=== PATIENT | male | born 1995 | race Caucasian/White ===

== ENCOUNTER 2018-04-08 05:32 | Day surgery (SDC) | payer OTHER ==
[2018-03-31 14:46] VITALS: BMI 23.5
[~2018-04-08 05:32] MED LIST: DEXAMETHASONE SOD PHOSPHATE 10 MG/ML 1 ML VIAL IV ONE; HEPARIN SODIUM,PORCINE 5,000 UNIT/ML 1 ML VIAL SQ ONE; HYDROmorphone 0.5 MG/0.5 ML SYRINGE IVP PRN; MIDAZOLAM 2 MG/2 ML VIAL IV PRN; SCOPOLAMINE 1.5MG/72HR PATCH TRANSDERM ONE; ceFAZolin IN SWFI 2 GM/20 ML SYRINGE IVP ONE
[2018-04-08 06:12] VITALS: RESP 16
[2018-04-08] MEDS: LIDOCAINE 1% 20 ML VIAL (10MG/ML) FOR IV START INTRADERMA PRN ×2 (06:29→06:30)
[2018-04-08] MEDS: LACTATED RINGERS 1,000 ML IV SCH ×2 (06:29→06:30)
[2018-04-08] MEDS: ONDANSETRON 4 MG/2 ML VIAL IVP ONE ×2 (06:32→09:14)
--- NOTE | 2018-04-08 07:30 | P.GSHP ---
History of Present Illness H&P Date: 04/08/18 CHIEF COMPLAINT: Inguinal hernia, bilateral HISTORY OF PRESENT ILLNESS: The patient is a 23-year-old male who presents with a history of swelling and pain along the both groins. Now he presents for repair of his inguinal hernia. PAST MEDICAL HISTORY: Please see list. PAST SURGICAL HISTORY: Please see list. MEDICATIONS: Please see list. ALLERGIES: Please see list. SOCIAL HISTORY: No illicit drug use FAMILY HISTORY: No reports of Crohn disease or ulcerative colitis. REVIEW OF ORGAN SYSTEMS: CONSTITUTIONAL: No reports of fevers or chills. No reports of weight loss despite prior attempts. GI: Denies any blood in stools or constipation. PHYSICAL EXAM: VITAL SIGNS: Stable GENERAL: Well-developed pleasant male in no acute distress. HEENT: No scleral icterus. Extraocular movements grossly intact. Moist buccal mucosa. NECK: Supple without lymphadenopathy. CHEST: Unlabored respirations. Equal bilateral excursions. CARDIOVASCULAR: Regular rate and rhythm. Distal 2+ pulses. ABDOMEN: Soft, nondistended. No peritoneal signs. Palpable defect of the bilateral groin. MUSCULOSKELETAL: No clubbing, cyanosis, or edema. ASSESSMENT: 1. Inguinal hernia, bilateral PLAN: 1. Recommend proceeding with a robotic inguinal repair with mesh with bilateral approach. 2. Benefits and risks of surgical intervention was discussed including possibility of open technique. 3. DVT prophylaxis. 4. Antibiotic prophylaxis. Past Medical History History of Any Multi-Drug Resistant Organisms: None Reported Past Surgical History: Hernia Repair Additional Past Surgical History / Comment(s): rt inguinal hernia, reconstructive nose surgery Past Anesthesia/Blood Transfusion Reactions: No Reported Reaction Smoking Status: Current every day smoker - Past Family History Father Family Medical History: Pulmonary Embolus Medications and Allergies Home Medications Medication Instructions Recorded Confirmed Type Cyclobenzaprine [Flexeril] 5 mg PO DAILY PRN 03/31/18 04/08/18 History Ibuprofen 800 mg PO TID PRN 03/31/18 03/31/18 History Allergies Allergy/AdvReac Type Severity Reaction Status Date / Time No Known Allergies Allergy Verified 03/31/18 14:36 Surgical - Exam Vital Signs Temp Pulse Resp BP Pulse Ox 97.4 F L 73 16 125/67 100 04/08/18 06:11 04/08/18 06:11 04/08/18 06:11 04/08/18 06:11 04/08/18 06:11
[2018-04-08] MEDS ORDERED: NEOSTIGMINE 1 MG/ML 10 ML VIAL ONE (07:34)
[2018-04-08] MEDS ORDERED: ROCURONIUM BROMIDE 10 MG/ML 10 ML VIAL IV ONE (07:34)
[2018-04-08] MEDS ORDERED: MIDAZOLAM 2 MG/2 ML VIAL ONE (07:34)
[2018-04-08] MEDS ORDERED: fentaNYL (PF) 50 MCG/ML 2 ML AMP ONE (07:34)
[2018-04-08] MEDS ORDERED: GLYCOPYRROLATE 0.2 MG/ML 2 ML VIAL ONE (07:34)
[2018-04-08] MEDS ORDERED: PROPOFOL 10 MG/ML 20 ML VIAL IV ONE (07:34)
[2018-04-08] MEDS ORDERED: LIDOCAINE 1% INJ 10MG/ML (20 ML MDV) ONE (07:34)
[2018-04-08] MEDS ORDERED: ROPIVACAINE 5 MG/ML 30 ML VIAL ONE (07:34)
[2018-04-08] MEDS ORDERED: ceFAZolin IN SWFI 2 GM/20 ML SYRINGE IVP ONE (07:50)
[2018-04-08] MEDS ORDERED: BUPIVACAIN-EPI 0.25%-1:200,000 30 ML VIAL SQ ONE ×2 (07:58→08:05)
--- NOTE | 2018-04-08 09:01 | P.ONQ ---
Anesthesiology Proc Note - PNB - Peripheral Nerve Block Performed Bilateral Transversus Abdominis Time Out Performed: Yes Procedure Start Time: 07:09 Procedure Stop Time: 07:14 Indication: Acute Post-Operative Pain, Requested by physician Sedation Type: Sedate with meaningful contact maintained Preparation: Sterile Prep Position: Supine Catheter: None Needle Types: On-Q Needle Size: 100mm (4") Needle Gauge: 21 Technique: Ultrasound Injectate: Other (see comment) (0.375% ropivaciane 20cc on each side) Blood Aspirated: No Pain Paresthesia on Injection Noted: No Resistance on Injection: Normal Events: Uneventful and Well Tolerated
[2018-04-08] MEDS: MEPERIDINE 50 MG/ML SYRINGE IVP ONE ×2 (09:10→09:53)
[2018-04-08 09:18] VITALS: TEMP 97.2
--- NOTE | 2018-04-08 09:49 | P.OP ---
Date of Procedure: 04/08/18 Description of Procedure: SURGEON: ELLE PLASENCIA MD PREOPERATIVE DIAGNOSES: 1. History of right inguinal hernia 2. Left inguinal pain 3. Tobacco abuse POSTOPERATIVE DIAGNOSES: 1. History of right inguinal hernia 2. Left inguinal pain 3. Tobacco abuse 4. Symptomatic left inguinal hernia, direct, initial OPERATION: 1. Robotic assisted da [employer] Xi laparoscopic left inguinal hernia repair with ventralight ST mesh, 11.4 cm. ANESTHESIA: General with local anesthetic ESTIMATED BLOOD LOSS: 5 mL. SPECIMENS REMOVED: None. COMPLICATIONS: None. INDICATIONS: The patient is a 23-year-old gentleman who presents with history of right inguinal hernia repair now with left-sided pain. Now presents for definitive surgical intervention. Laparoscopic versus open and robotic approaches were discussed. Benefits and risks including bleeding, infection, injury to the vas deferens as well as sterility and chronic groin pain were reviewed. Placement of mesh was also described. Informed consent was obtained. DESCRIPTION: In the preoperative area, the patient was marked with indelible marker along the left groin. The patient was brought to the operating room and initially laid in supine position. After general induction, the abdomen had been prepped and draped in standard sterile fashion. Ioban draping was also placed. Prior to incision, a timeout protocol was confirmed with surgical team regarding patient's name including procedures to be performed and location along the left groin. Initial positioning for the robotic assisted ports were selected whereby 20 cm superior to the target anatomy, 0 degree 5 mm laparoscopic trocar entry was performed at the left upper quadrant. The abdomen was insufflated to 15 mmHg which he had tolerated well. Diagnostic laparoscopy demonstrated weak left inguinal floor and previous right inguinal hernia repair without recurrence. Next, along the epigastrium, 8 mm robot trocar was placed. An 8-mm robotic trocar was placed under direct visualization at the right upper quadrant. The 5 mm port was exchanged for a 8 mm trocar. All trocars were positioned between 8 to 10-cm apart from each other. The [employer] robot was primed, draped, prepared for docking along the left side of the patient. I then went to the [employer] Xi console. The trading assistant was at bedside for exchange of the robot arms and equipment. At the left groin, a direct inguinal hernia was identified. The groin was explored and unremarkable for inguinal lipoma. Using a 2-0 VLOC, the peritoneal defect of 2-cm of the left inguinal hernia site was closed using a pursestring suture. As an onlay, an 11.[address] mesh by [employer] was cut in half and entered into the abdominal cavity via the 8 mm trocar. The mesh was tacked to the pelvis using 2-0 VLOC x 9-inch length sutures. The robot was undocked from the patient's bedside. I then rescrubbed into the case. Insufflation was released from the abdominal cavity and all instruments were removed from the abdominal cavity. The rest of incisions were reapproximated using 4-0 Monocryl in a running subcuticular fashion. Local anesthetic was placed along the incision including for a groin block. Incisions were cleansed using dilute hydrogen peroxide. Liquid was applied to the skin. At the end of the procedure, the needle, sponge and instrument counts had been verified correct by the registered nurse surgical services. The patient had tolerated the procedure well and was taken to the postanesthesia care unit in stable condition. Intraoperative findings were described to the patient's family who were pleased with the level of care. FINDINGS: 1. Weak left inguinal floor, direct hernia without lipoma 2. Right groin without recurrence Plan - Discharge Summary New Discharge Prescriptions: New HYDROcodone/APAP 5-325MG [[place] 5-325] 1 tab PO Q4HR PRN 3 Days #18 tab PRN Reason: Pain Ibuprofen [Motrin] 600 mg PO Q8HR PRN #30 tab PRN Reason: Pain No Action Cyclobenzaprine [Flexeril] 5 mg PO DAILY PRN PRN Reason: Pain Ibuprofen 800 mg PO TID PRN PRN Reason: Pain Discharge Medication List Cyclobenzaprine [Flexeril] 5 mg PO DAILY PRN 03/31/18 [History] Ibuprofen 800 mg PO TID PRN 03/31/18 [History] HYDROcodone/APAP 5-325MG [[place] 5-325] 1 tab PO Q4HR PRN 3 Days #18 tab [Rx] Ibuprofen [Motrin] 600 mg PO Q8HR PRN #30 tab 04/08/18 [Rx] Follow up Appointment(s)/Referral(s): Elle Plasencia MD [STAFF PHYSICIAN] - 04/13/18 10:45 am Patient Instructions/Handouts: *Surgery [facility] - (Anesthesia) Discharge Instructions Outpatient Surgery, Laparoscopic Herniorrhaphy (DC), Inguinal Hernia Repair (DC) Activity/Diet/Wound Care/Special Instructions: No lifting over 4 pounds 2 weeks. May shower. No bath tub soaks. Discharge Disposition: HOME SELF-CARE
[2018-04-08 10:42] VITALS: BP 122/78; PULSE 67
== END 2018-04-08 10:50 | disposition home or self-care (01) ==
LOC: OR 05:32
PROVIDERS: ATTEND Surgery Plastic and Reconstructive Surgery
DX: K40.90 Unilateral inguinal hernia, without obstruction or gangrene, not specified as recurrent (principal); F17.210 Nicotine dependence, cigarettes, uncomplicated
CPT/HCPCS: 64488; 49650; C1781; J2250; J1644; J1100; J2710; J2175; J2405; J2001; J3010; J2795; J2704; J0690